=== PATIENT | female | born 1980 | race Caucasian/White ===

== ENCOUNTER 2024-01-03 22:00 | Emergency (ER) | payer OTHER ==
[2024-01-03 22:23] VITALS: TEMP 102.1; BMI 31.1
[2024-01-03] MEDS ORDERED: ACETAMINOPHEN INJECTION 100 ML ONE (22:53)
[2024-01-03] MEDS: ACETAMINOPHEN 1000 MG/100 ML BAG IVPB ONE (23:04)
[2024-01-03] MEDS: SODIUM CHLORIDE 0.9% 500 ML INFUS.BAG IV ONE (23:04)
[2024-01-03 23:17] LABS: BASO % 0.5 % (0-2.0); EOS % 0.5 % (0-4.5); HEMATOCRIT 42.2 % (32.4-45.2); LYMPH % 10.7 % (8-40); MCH 26.8 pg (25.7-33.7); MCHC 33.2 g/dl (32.0-36.0); MEAN CELL VOLUME 80.7 fl (80-96); MEAN PLT VOLUME 9.6 fl (7.5-11.1); MONO % 7.3 % (3.8-10.2); PLATELET COUNT 226 10^3/uL (134-434); RBC 5.23 M/mm3 (3.60-5.2); WHITE BLOOD COUNT 10.2 K/mm3 (4.0-10.0)
[2024-01-03 23:30] LABS: INR 1.39 (0.83-1.09); PROTHROMBIN TIME (PATIENT) 15.8 SEC (9.7-13.0)
[2024-01-03 23:33] LABS: ACTIVATED PTT 38.6 SECONDS (25.2-36.5)
[2024-01-03 23:35] LABS: POTASSIUM 3.9 mmol/L (3.5-5.1)
[2024-01-03 23:38] LABS: ALBUMIN 3.3 g/dl (3.4-5.0); CALCIUM 8.9 mg/dL (8.5-10.1)
[2024-01-03 23:40] LABS: THROAT:GRP A STREP NOT DETECTED (NOTDETECTED)
[2024-01-03 23:42] LABS: CREATININE 0.9 mg/dL (0.55-1.3)
[2024-01-03 23:43] LABS: BILIRUBIN,TOTAL 0.6 mg/dL (0.2-1); TOT PROT 6.8 g/dl (6.4-8.2)
[2024-01-04 00:15] VITALS: BP 115/73; PULSE 100; RESP 16
[2024-01-04 00:33] LABS: EPI CELLS 11 /uL (0-25.1); HYALINE CASTS 1 /uL (0-3.1); PH,URINE 6.5 (5.0-8.0); URINE APPEARANCE CLEAR; URINE BACTERIA 231 /uL (0-1359); URINE BILIRUBIN NEGATIVE (NEGATIVE); URINE COLOR YELLOW; URINE GLUCOSE (UA) NEGATIVE (NEGATIVE); URINE KETONE 2+ (NEGATIVE); URINE LEUK ESTERASE NEGATIVE (NEGATIVE); URINE NITRITE NEGATIVE (NEGATIVE); URINE PROTEIN NEGATIVE (NEGATIVE); URINE RBC 54 /uL (0-23.9); URINE UROBILINOGEN 0.2 mg/dL (0.2-1.0); URINE WBC 17 /uL (0-25.8)
[2024-01-04] MEDS ORDERED: DOXYCYCLINE HYCLATE 100 MG CAPSULE PO ONE (00:57)
[2024-01-04] MEDS ORDERED: CEFTRIAXONE 1 GM/50 ML BAG ONE (00:57)
[2024-01-04] MEDS: DOXYCYCLINE HYCLATE 100 MG CAPSULE PO ONE (01:07)
[2024-01-04] MEDS: CEFTRIAXONE 1,000 MG in DEXTROSE 5%-WATER - 50 ML IVPB ONE (01:07)
[2024-01-04] MEDS: AZITHROMYCIN 250 MG TABLET PO ONE (01:27)
== END 2024-01-04 01:26 | disposition home or self-care (01) ==
LOC: JER 22:00
PROC: 3E03329 Introduction of Other Anti-infective into Peripheral Vein, Percutaneous Approach (ICD-10-PCS; principal; 2024-01-04)
PROC: 3E033NZ Introduction of Analgesics, Hypnotics, Sedatives into Peripheral Vein, Percutaneous Approach (ICD-10-PCS; 2024-01-04)
DX: R50.9 Fever, unspecified (principal); J18.9 Pneumonia, unspecified organism; M79.10 Myalgia, unspecified site; R11.2 Nausea with vomiting, unspecified; Z20.822 Contact with and (suspected) exposure to COVID-19
CPT/HCPCS: 0241U-QW; 36415; 71045-TC-FY; 80053; 81003; 82962; 83735; 84439; 84443; 84703; 85025; 85610; 85730; 86850; 86900; 86901; 87070; 87086; 87651; 93005; 93010; 99285-25; J0131